=== PATIENT | male | born 1945 | race American Indian/Alaskan Native ===

== ENCOUNTER 2018-05-22 06:43 | Day surgery (SDC) | payer MEDICARE ==
[2018-05-22] MEDS ORDERED: Lactated Ringer's 500 ML IV ONE (09:05)
[2018-05-22] MEDS ORDERED: Propofol 10 mg/ml Inj (20 ML) ONE (09:10)
--- NOTE | 2018-05-22 09:10 | CP.SDSHP ---
Same Day Surgery H & P - History Proposed Procedure: colonoscopy Pre-Op Diagnosis: anemia, GI bleed - Previous Medical/Surgical History Cardiac: Hypertension Endocrine/Metabolic: Diabetes - Allergies Allergies: Allergies No Known Allergies Allergy (Verified 05/22/18 07:31) - Physical Exam Vital Signs: Vital Signs 05/22/18 07:20 Temperature 97.3 F L Pulse Rate 80 Respiratory 20 Rate Blood Pressure 178/85 H O2 Sat by Pulse 98 Oximetry Mental Status: Alert & Oriented x3 Neuro: WNL Heart: WNL Lungs: WNL GI: WNL - {Optional Preform as Required} Abdomen: WNL - Impression Impression: gi bleed Pt. Evaluated Today:Candidate for Anesthesia & Procedure: Yes - Date & Time Date: 05/22/18 Time: 09:00 Short Stay Discharge - Short Stay Discharge Admitting Diagnosis/Reason for Visit: CHANGE IN BOWEL HABIT Disposition: HOME/ ROUTINE
[2018-05-22 09:13] VITALS: O2SAT 100
[2018-05-22 10:45] VITALS: TEMP 98.2
[2018-05-22 10:51] VITALS: BP 151/83; PULSE 77; RESP 20
== END 2018-05-22 10:30 | disposition home or self-care (01) ==
LOC: C.ENDO 06:43
PROVIDERS: ATTEND Internal Medicine Gastroenterology
DX: K57.30 Diverticulosis of large intestine without perforation or abscess without bleeding (principal); K64.8 Other hemorrhoids; K62.5 Hemorrhage of anus and rectum; D50.9 Iron deficiency anemia, unspecified; I10 Essential (primary) hypertension; E11.9 Type 2 diabetes mellitus without complications
CPT/HCPCS: 45378; 82948; J2704; J7120